=== PATIENT | female | born 1985 | race American Indian/Alaskan Native ===

== ENCOUNTER 2021-02-26 08:34 | Observation (INO) | payer MEDICAID ==
--- NOTE | 2021-02-26 08:51 | Anesthesia Day of Surgery ---
Anesthesia Day of Surgery - Day of Surgery Patient Examined: Yes Patient H&P Reviewed: Yes Patient is NPO: Yes Beta Blockers: No Cardiac Clearance: No Pulmonary Clearance: No Som's Test: N/A
--- NOTE | 2021-02-26 08:51 | Anesthesia Consultation ---
Anesthesia Consult and Med Hx Date of service: 02/26/21 - Airway Anesthetic Teeth Evaluation: Good ROM Head & Neck: Adequate Mental/Hyoid Distance: Adequate Mallampati Class: Class III Intubation Access Assessment: Possibly Difficult - Pulmonary Exam CTA: Yes - Cardiac Exam Cardiac Exam: RRR - Pre-Operative Health Status ASA Pre-Surgery Classification: ASA2 Proposed Anesthetic Plan: Spinal - Pulmonary Hx Smoking: No Hx Asthma: No Hx Sleep Apnea: No - Cardiovascular System Hx Hypertension: Yes Hx Heart Attack/AMI: No Hx Angina: No - Central Nervous System Hx Seizures: No Hx Psychiatric Problems: No - Gastrointestinal Hx Gastroesophageal Reflux Disease: No - Endocrine Hx Renal Disease: No Hx Liver Disease: No Hx Insulin Dependent Diabetes: No Hx Non-Insulin Dependent Diabetes: No Hx Hypothyroidism: No Hx Hyperthyroidism: No - Hematic Hx Anemia: No Hx Sickle Cell Disease: No - Other Systems Hx Alcohol Use: No Hx Obesity: Yes
[2021-02-26] MEDS ORDERED: MORPHINE 4 MG/1 ML INJ IV PRN (09:00)
[2021-02-26] MEDS ORDERED: PROMETHAZINE 25 MG TAB PO PRN (09:00)
[2021-02-26] MEDS ORDERED: PROMETHAZINE 25 MG RECT SUPP PR PRN (09:00)
[2021-02-26] MEDS ORDERED: NalbUPHINE 10 MG/1 ML INJ IV PRN (09:00)
[2021-02-26] MEDS ORDERED: diphenhydrAMINE 50 MG/ML VIAL IV PRN (09:30)
[2021-02-26] MEDS ORDERED: NALOXONE 0.4 MG/1 ML INJ IV PRN (09:30)
[2021-02-26] MEDS ORDERED: ONDANSETRON 4 MG/2 ML INJ IV PRN (09:30)
[2021-02-26] MEDS ORDERED: LACTATED RINGERS 2,000 ML ONE (10:00)
[2021-02-26] MEDS ORDERED: LACTATED RINGERS 1000 ML IV SOLN IV SCH (10:00)
[2021-02-26 13:22] LABS: Hematocrit 36.9 % (30.3-42.9); Hemoglobin 12.3 gm/dl (10.1-14.3); Mean Corpuscular HGB Conc 33 % (30-34); Mean Corpuscular Volume 91 fl (79-97); Platelet Count 281 K/mm3 (140-440); Red Blood Count 4.06 M/mm3 (3.65-5.03); Red Cell Distribution Width 13.6 % (13.2-15.2)
[2021-02-26] MEDS ORDERED: WATER FOR IRRIG STERILE 1,000 ML BOTTLE ONE (14:05)
--- NOTE | 2021-02-26 15:34 | Progress Note ---
Spinal Anesthesia Block - Spinal Anesthesia Block Start Time: 13:40 Stop Time: 13:49 Performed by:: CANDACE WEINER Procedure: Spinal anesthesia block is being performed for [Cerclage]. H&P, labs have been reviewed. Patient's questions and concerns have been answered. Informed consent has been performed. Timeout has was performed. Patient in sitting position on side of bed. Sterile prep and drape was performed. 3 mL 1% lidocaine skin wheal at L [3]-L [4]. Needle introducer advanced. 25-gauge spinal needle advanced, no success. 3 mL 1% lidocaine skin wheal at L [2]-L [3]. Needle introducer advanced. 25-gauge spinal needle advanced, [+] CSF [-] blood. [Marcaine 7.5mg] Spinal dose was given. All needles removed. Patient tolerated procedure well.
--- NOTE | 2021-02-26 16:17 | Operative Report ---
Operative Report Operative Report: PRE-OPERATIVE DIAGNOSIS: 1. Single intrauterine at 15 + weeks gestation 2. Cervical incompetence 3. History of delivery 4. Morbid Obesity 5. Chronic hypertension POST-OPERATIVE DIAGNOSIS: Same PROCEDURE: History-indicated Porter cerclage ATTENDING: Junior Mensah MD ANESTHESIA: Spinal COMPLICATIONS: None. ESTIMATED BLOOD LOSS: 25 cc FINDINGS: Normal external anatomy. Cervix closed. Posterior lip difficult to visualize as it appears to be flush with vaginal mucosa likely previous cervical procedure. 1 stitch placed and secured at 12 oclock position INDICATIONS: History of 28 week delivery followed by 2 second trimester loss with subsequent deliveries at 36 and 32 weeks respectively. All risks, benefits and alternatives were discussed and informed consent was obtained. PROCEDURE: The patient was taken to the operating room and a spinal anesthetic was administered without difficulty. The patient was placed in the dorsal lithotomy position, legs were positioned in Som stirrups. Analgesia was deemed to be adequate. The patient was prepped and draped in the usual sterile fashion and put in Trendelenburg. The patient's bladder was intentionally not catheterized to better delineate the cervico-vesical border. A weighted sterile retractor was placed in the vagina followed by an anterior retractor to better visualize the cervix. A right angle retractor was placed in the lateral side wall of the vagina. Ring forceps were placed on the anterior and posterior lips of the cervix for traction and to create a plain to place the stitch without rupturing membrane. A #5 Ethibond suture was use to place a stitch circumferentially around the cervix from 12 o'clock to 9 o'clock, 9 o'clock to 6 o'clock, 6 o'clock to 3 o'clock and from 3 o'clock to 12 o'clock at the level of the cervico-vaginal junction. The stitch was then tied with multiple knots to secure it. All instruments were removed from the vagina. Excellent hemostasis was noted. The bladder was then drained at the end of the procedure with a sterile catheter. The patient was taken to the recovery room in stable condition. Sponge, lap, needle counts were correct times two.
--- NOTE | 2021-02-26 16:29 | Post Anesthesia Evaluation ---
- Post Anesthesia Evaluation Patient Participated: Yes Airway Patent: Yes Stable Respiratory Function: Yes Nausea/Vomiting: No Temp > 96.8F: Yes Pain Manageable: Yes Adequeate Hydration: Yes Anesthesia Complications: No Block Receding Appropriately: Yes Patient on Ventilator: No
[2021-02-26] MEDS ORDERED: INDOMETHACIN 25 MG CAP PO NR (16:30)
[2021-02-26] MEDS ORDERED: LACTATED RINGERS 500 ML IV ONE (17:00)
[2021-02-26] MEDS ORDERED: LACTATED RINGERS 2,000 ML IV SCH (18:00)
[2021-02-26] MEDS ORDERED: LACTATED RINGERS 1000 ML IV SOLN ONE (18:00)
[2021-02-26 19:00] VITALS: BP 110/55
--- NOTE | 2021-03-15 08:36 | History and Physical Report ---
History of Present Illness Date of examination: 02/26/21 Date of admission: 02/26/21 08:35 Chief complaint: Cervical incompetence History of present illness: Ms. Luque is a 35 y/o with a complicated by a history of delivery x4. Her is also complicated by morbid obesity, AMA, chronic hypertension. She denies any vaginal bleeding or abdominal cramping. Past History Past Medical History: hypertension Past Surgical History: Other (LEEP) Social history: no significant social history Family history: hypertension, other (SLE) Medications and Allergies Allergies Allergy/AdvReac Type Severity Reaction Status Date / Time No Known Allergies Allergy Verified 02/26/21 15:29 Home Medications Medication Instructions Recorded Confirmed Last Taken Type One Daily Tablet 1 tab PO DAILY 02/26/21 02/26/21 02/25/21 History Review of Systems Constitutional: no fever, no chills, no poor appetite Ears, nose, mouth and throat: no sore throat Cardiovascular: no chest pain, no shortness of breath, no dyspnea on exertion Respiratory: no cough Gastrointestinal: no abdominal pain, no nausea, no vomiting Musculoskeletal: no muscle weakness, no muscle cramps Integumentary: no rash, no pruritis Neurological: no weakness, no headaches, no migraines Psychiatric: no change in sleep habits, no sadness/tearfullness Endocrine: no cold intolerance, no heat intolerance Hematologic/Lymphatic: no easy bruising, no easy bleeding Exam - Constitutional Vitals: Temp Pulse Resp BP Pulse Ox 98.5 F 73 110/55 100 02/26/21 19:05 02/26/21 18:59 02/26/21 18:59 02/26/21 18:56 General appearance: Present: no acute distress - Respiratory Respiratory effort: normal - Cardiovascular Rhythm: regular - Extremities Extremities: No edema Peripheral Pulses: within normal limits - Abdominal General gastrointestinal: Present: soft, non-tender, other (gravid) - Integumentary Integumentary: Present: warm, dry - Musculoskeletal Musculoskeletal: strength equal bilaterally - Psychiatric Psychiatric: appropriate mood/affect Results - Labs CBC & Chem 7: 02/26/21 09:35 Assessment and Plan To OR for cerclage placement
--- NOTE | 2021-03-23 10:30 | Addendum Note ---
- Addendum Date: 04/06/21 - Discharge Diagnoses (1) Cervical incompetence affecting management of in second trimester, antepartum Status: Acute Comment: Cerclage placed
== END 2021-02-26 19:09 | disposition home or self-care (01) ==
LOC: TRG 08:34 → APU 08:35 → INTOOBSV 08:35 → TRG 08:41
PROVIDERS: ADMIT Obstetrics & Gynecology Maternal & Fetal Medicine; ATTEND Obstetrics & Gynecology Maternal & Fetal Medicine
DX: O34.32 Maternal care for cervical incompetence, second trimester (principal); O10.912 Unspecified pre-existing hypertension complicating pregnancy, second trimester; O99.212 Obesity complicating pregnancy, second trimester; E66.01 Morbid (severe) obesity due to excess calories; Z3A.15 15 weeks gestation of pregnancy
CPT/HCPCS: 36415; 59320; 85027; 86592; 86850; 86900; 86901; G0378; J7120

== ENCOUNTER 2021-06-23 19:57 | Outpatient (CLI) | payer MEDICAID ==
[2021-06-23 20:37] VITALS: BP 119/77
[2021-06-23] MEDS ORDERED: LACTATED RINGERS 1,000 ML IV ONE (20:51)
[2021-06-23 21:16] LABS: Amphetamine Screen,Urine Negative; Benzodiazepines Screen,Urine Negative; Cannabinoid Screen,Urine Negative; Cocaine Screen,Urine Negative; Methadone Screen,Urine Negative; Opiate Screen,Urine Negative
[2021-06-23 21:52] LABS: Bacteria,Urine 4+ /HPF (Negative); Bilirubin,Urine NEG (Negative); Blood,Urine NEG (Negative); Calcium Oxalate Crystals,Urine 1+; Color,Urine Yellow (Yellow)
[2021-06-23] MEDS ORDERED: ACETAMINOPHEN 500 MG TAB PO ONE (23:23)
== END 2021-06-24 00:45 | disposition home or self-care (01) ==
LOC: TRG 19:57 → APU 19:59 → TRG 06-24 00:45
PROVIDERS: ATTEND Obstetrics & Gynecology
DX: O26.893 Other specified pregnancy related conditions, third trimester (principal); R10.30 Lower abdominal pain, unspecified; M54.50 Low back pain, unspecified; O16.3 Unspecified maternal hypertension, third trimester; O99.213 Obesity complicating pregnancy, third trimester; V89.2XXA Person injured in unspecified motor-vehicle accident, traffic, initial encounter; Z3A.32 32 weeks gestation of pregnancy; Y93.89 Activity, other specified; Y92.89 Other specified places as the place of occurrence of the external cause; Y99.8 Other external cause status
CPT/HCPCS: 59025; 80307; 81001; 87086; 96360; J7120; J3490

== ENCOUNTER 2021-07-24 10:41 | Outpatient (CLI) | payer MEDICAID ==
[2021-07-24] MEDS ORDERED: LACTATED RINGERS 500 ML IV ONE (10:55)
[2021-07-24 12:02] LABS: Bilirubin,Urine NEG (Negative); Blood,Urine NEG (Negative); Color,Urine Yellow (Yellow); Mucus,Urine 1+ /HPF; Urobilinogen,Urine < 2.0 mg/dL (<2.0)
[2021-07-24 12:05] LABS: Hematocrit 34.4 % (30.3-42.9); Hemoglobin 10.8 gm/dl (10.1-14.3); Mean Corpuscular HGB Conc 32 % (30-34); Mean Corpuscular Volume 87 fl (79-97); Platelet Count 205 K/mm3 (140-440); Red Blood Count 3.96 M/mm3 (3.65-5.03); Red Cell Distribution Width 14.3 % (13.2-15.2)
[2021-07-24 13:25] LABS: Alanine Aminotransferase 8 units/L (7-56)
[2021-07-24 13:41] LABS: Uric Acid 5.5 mg/dL (3.5-7.6)
[2021-07-24 13:46] VITALS: BP 104/56
[2021-07-24] MEDS ORDERED: LIDOCAINE-MPF (1%) 10 MG/1 ML VIAL 5 ML INFILTRATI ONE (15:23)
== END 2021-07-24 15:30 | disposition home or self-care (01) ==
LOC: TRG 10:41 → APU 10:43 → TRG 15:30
PROVIDERS: ATTEND Obstetrics & Gynecology
DX: O13.3 Gestational [pregnancy-induced] hypertension without significant proteinuria, third trimester (principal); O09.523 Supervision of elderly multigravida, third trimester; O99.213 Obesity complicating pregnancy, third trimester; Z3A.37 37 weeks gestation of pregnancy
CPT/HCPCS: 36415; 59025; 81001; 82565; 83615; 84450; 84460; 84550; 85027; 87086; 96372; J0696; J3490

== ENCOUNTER 2021-07-31 13:26 | Outpatient (CLI) | payer MEDICAID ==
[2021-07-31 14:42] LABS: Bilirubin,Urine NEG (Negative); Blood,Urine SM (Negative); Color,Urine Yellow (Yellow); Mucus,Urine 2+ /HPF; Urobilinogen,Urine < 2.0 mg/dL (<2.0)
[2021-07-31 15:01] LABS: Alanine Aminotransferase 10 units/L (7-56); Uric Acid 6.2 mg/dL (3.5-7.6)
[2021-07-31 15:03] LABS: Hematocrit 40.5 % (30.3-42.9); Hemoglobin 13.2 gm/dl (10.1-14.3); Mean Corpuscular HGB Conc 33 % (30-34); Mean Corpuscular Volume 98 fl (79-97); Red Blood Count 4.13 M/mm3 (3.65-5.03); Red Cell Distribution Width 14.1 % (13.2-15.2)
[2021-07-31 15:04] LABS: Platelet Count 83 K/mm3 (140-440)
[2021-07-31 15:41] VITALS: BP 138/83
== END 2021-07-31 16:20 | disposition home or self-care (01) ==
LOC: TRG 13:26 → APU 13:28 → TRG 16:20
PROVIDERS: ATTEND Obstetrics & Gynecology
DX: O09.893 Supervision of other high risk pregnancies, third trimester (principal); Z3A.37 37 weeks gestation of pregnancy
CPT/HCPCS: 36415; 59025; 81001; 82565; 83615; 84450; 84460; 84550; 85027; 87086